=== PATIENT | female | born 1975 | race Caucasian/White ===

== ENCOUNTER 2018-02-17 17:41 | Observation (INO) ==
--- NOTE | 2018-02-17 19:16 | Internal Med History&Physical ---
Date of Encounter: 02/17/18 Time of Encounter: 19:13 Assessment and Plan (1) CAD (coronary artery disease) Current visit: Yes Status: Acute Patient says had a PTCA with stent placement to RCA last year at [facility] Qualifiers: Coronary Disease-Associated Artery/Lesion type: [place] artery [place] vs. transplanted heart: [place] heart Associated angina: with stable angina Qualified Code(s): I25.118 - Atherosclerotic heart disease of [place] coronary artery with other forms of angina pectoris (2) Chronic back pain Current visit: Yes Status: Chronic Chronic resume home medication Qualifiers: Back pain location: thoracic back pain Back pain laterality: unspecified Qualified Code(s): M54.6 - Pain in thoracic spine; G89.29 - Other chronic pain; G89.29 - Other chronic pain (3) Smoking Current visit: Yes Status: Chronic (4) Chest pain Current visit: No Status: Acute Patient with prior angioplasty now with recurrent chest pain about 2-3 weeks but more persistent today troponin so far is negative with trend troponin obtain 2-D echo and nuclear stress test tomorrow Qualifiers: Chest pain type: precordial pain Qualified Code(s): R07.2 - Precordial pain Internal Medicine - H&P: HPI Chief complaint: chest pain Admitted From: Intrahospital Transfer Plans for Post Hospital Care: Home History of present illness: Ms. Soto is a 43 year old female Patient with history of CAD had a stent placement of the RCA about a year ago .also history of chronic upper back on the neck pain, high cholesterol and smoking history patient presented to [place] emergency room with chest pain recurrent for about 2-3 weeks but has been persistent today since 12 noon patient says is similar to her chest pain which she pci last year the chest pain has no relationship to any activity no radiation no shortness of breath and sweats. Her troponin outside hospital was negative she was transferred here for further Evaluation. Past Med Surg Social Fam HX - Past Medical History Medical history: coronary artery disease, other Psychiatric history: no psych history - Past Surgical History Surgical History: angioplasty/stent - Social History Smoking Status: Current every day smoker Smokeless Tobacco Status: No Alcohol use: none Drug use: none - Family History Mother Living Status: Hx Family Cardiac Disorders: Yes Hx Family Cancer: Yes (lung) Internal Medicine - H&P: Meds Aspirin [Lo-Dose Aspirin EC] 81 mg PO DAILY 02/17/18 [History] Atorvastatin [Lipitor] 40 mg PO HS 02/17/18 [History] Celecoxib [Celebrex] 200 mg PO BID 02/17/18 [History] Ranolazine [Ranexa] 500 mg PO BID 02/17/18 [History] amLODIPine [Norvasc] 2.5 mg PO DAILY 02/17/18 [History] 3 Allergy/AdvReac Type Severity Reaction Status Date / Time No Known Allergies Allergy Verified 07/22/17 11:15 All Systems PM: A 10-system review of systems was performed and is negative for pertinent findings except as documented above in the HPI. - Constitutional Constitutional: no chills, no fever(s), no night sweats - EENT Eyes: no change in vision, no discharge, no pain, no photophobia Ears: no ear discharge, no ear pain, no tinnitus Nose, mouth and throat: no dysphagia, no nasal discharge, no neck pain, no sore throat - Cardiovascular Cardiovascular ROS IM: chest pain - Respiratory Respiratory: no cough, no dyspnea, no wheezing, no excessive phlegm production - Gastrointestinal Gastrointestinal: no abdominal pain, no diarrhea, no hematemesis, no hematochezia, no melena, no nausea, no vomiting - Genitourinary Genitourinary: no change in urinary stream, no dysuria, no flank pain, no hematuria - Musculoskeletal Musculoskeletal ROS IM: no numbness, no tingling - Integumentary Integumentary IM: no rash, no unusual bruising - Constitutional Vitals: Temp Pulse Resp BP Pulse Ox 98.3 F 66 16 137/77 99 02/17/18 19:05 02/17/18 19:05 02/17/18 19:05 02/17/18 19:05 02/17/18 19:05 - Head Head exam: Present: atraumatic, normocephalic - Eye Eye exam: Present: PERRL, conjuntiva pink, sclera anicteric Pupils: Present: PERRL - Neck Neck exam general surgery: Present: supple, trachea midline. Absent: lymphadenopathy - Respiratory Respiratory exam: Present: CTAB. Absent: accessory muscle use, rales, rhonchi, wheezes - Cardiovascular Cardiovascular exam: Present: RRR, +S1, +S2. Absent: diastolic murmur, gallop, rubs, systolic murmur - GI/Abdominal GI/Abdominal exam: Present: normal bowel sounds, soft, no peritoneal signs. Absent: distended, tenderness - Extremities Exam Extremities exam: Present: warm, radial pulses palpable and symmetrical. Absent : calf tenderness, cyanotic, pedal edema - Neurological Exam Neurological exam: Present: CN II-XII intact, oriented X3, no focal deficits. Absent: pronater drift, facial droop, speech deficit - Skin Skin exam: Present: dry, intact
[2018-02-17] MEDS ORDERED: Naloxone 0.4 MG/ML INJ IVP PRN (19:19)
[2018-02-17] MEDS ORDERED: Acetaminophen 325 MG TABLET PO PRN (19:19)
[2018-02-17] MEDS ORDERED: 0.9 % Sodium Chloride 1,000 ML IVC SCH (19:30)
[2018-02-17] MEDS: Celecoxib 200 MG CAPSULE PO SCH (20:35)
[2018-02-17] MEDS: Ranolazine 500 MG TAB.ER.12H PO SCH (20:35)
[2018-02-17] MEDS: traMADol 50 MG TABLET PO PRN (20:35)
[2018-02-18 02:09] LABS: Alanine Aminotransferase 10 Units/L (7-52); Albumin 3.8 g/dL (3.5-5.7); Albumin/Globulin Ratio 1.6 (1.1-2.2); Alkaline Phosphatase 52 Units/L (34-104); Aspartate Amino Transferase 14 Units/L (13-39); BUN/Creatinine Ratio 26 (6-26); Bilirubin,Total 0.2 mg/dL (0.3-1.0); Blood Urea Nitrogen 19 mg/dL (6-20); Calcium 8.8 mg/dL (8.6-10.3); Carbon Dioxide 24 mEq/L (23-29); Chloride 107 mEq/L (98-107); Chol/HDL Ratio 3.6 (0-4.9); Cholesterol 172 mg/dL (< 200); Globulin 2.4 g/dL (2.4-3.5); Glucose 105 mg/dL (70-105); HDL Cholesterol 48 mg/dL (40-59); LDL Cholesterol,Calculated 96 mg/dL (0-99); Osmolality,Calculated 287 (280-300); Potassium 3.7 mEq/L (3.5-5.1); Sodium 137 mEq/L (136-145); Total Protein 6.2 g/dL (6.4-8.9); Triglycerides 140 mg/dL (< 150); eGFR For African Americans > 60 (> 60); eGFR For Non-African Americans > 60 (> 60)
[2018-02-18] MEDS: traMADol 50 MG TABLET PO PRN (03:48)
[2018-02-18] MEDS ORDERED: Regadenoson 0.4 MG/5 ML SYRINGE IVP ONE (06:14)
[2018-02-18] MEDS ORDERED: amLODIPine 5 MG TABLET PO SCH (09:00)
[2018-02-18] MEDS ORDERED: Aspirin Enteric Coated 81 MG Tablet PO SCH (09:00)
[2018-02-18] MEDS: Celecoxib 200 MG CAPSULE PO SCH (10:55)
[2018-02-18] MEDS: Ranolazine 500 MG TAB.ER.12H PO SCH (10:56)
[2018-02-18 11:20] VITALS: BP 129/85
--- NOTE | 2018-02-18 12:42 | Discharge Summary ---
- NOTES TO OUTPATIENT PROVIDER Notes to Outpatient Provider: pcp within week Orders not resulted at time of discharge: Pending orders 02/17/18 19:22 NM maia perf SPECT multi [NM] Routine Date of Encounter: 02/18/18 Time of Encounter: 12:40 - Discharge Diagnosis (1) CAD (coronary artery disease) Priority: Primary Status: Acute Qualifiers: Coronary Disease-Associated Artery/Lesion type: [place] artery [place] vs. transplanted heart: [place] heart Associated angina: with stable angina Qualified Code(s): I25.118 - Atherosclerotic heart disease of [place] coronary artery with other forms of angina pectoris (2) Chronic back pain Priority: Primary Status: Chronic Qualifiers: Back pain location: thoracic back pain Back pain laterality: unspecified Qualified Code(s): M54.6 - Pain in thoracic spine; G89.29 - Other chronic pain; G89.29 - Other chronic pain (3) Smoking Priority: Primary Status: Chronic Hospital course: Ms. Soto is a 43 year old female with a history of CAD and stent placement of the RCA approximately a year ago. Has a history of chronic upper back and neck pain with high cholesterol and smoking. She presented to the [place] emergency room with chest pain recurrent for 2-3 weeks but had persistent data admission for many hours. She states it was similar to her chest pain which she had last year. The chest pain had no relationship to activity with no radiation no shortness of breath no sweats. Her troponins were negative. She had a stress test. Port was reviewed and discussed with the patient the pharmacologic stress ECG was negative for ischemia at the level of heart rate achieved. Chest discomfort reported prior to and during the study with no change in intensity. Gated EF is equal to 64%. Perfusion imaging was negative for ischemia or infarct. Echocardiogram was obtained with LVEF 60-65%. Normal LV chamber size wall thickness and function. Normal left ventricular diastolic function. Normal right ventricular structure and function. No evidence of pulmonary hypertension and no significant valvular dysfunction. Last with the patient she will follow-up with her long term care phlebotomist in 2-3 weeks. Has no questions. Discharge discussed with: patient, family, nurse, community health consultant Time spent discussing smoking cessation with patient: 3 to 10 minutes - Time Spent with Patient Total time spent providing and/or coordinating discharge services: Less than 30 minutes - Discharge Medications Home Medications: Aspirin [Lo-Dose Aspirin EC] 81 mg PO DAILY 02/17/18 [History] Atorvastatin [Lipitor] 40 mg PO HS 02/17/18 [History] Ranolazine [Ranexa] 500 mg PO BID 02/17/18 [History] amLODIPine [Norvasc] 2.5 mg PO DAILY 02/17/18 [History] Metoprolol Succinate [Toprol Xl] 25 mg PO DAILY 02/18/18 [History] Prasugrel HCl 10 mg PO DAILY 02/18/18 [History] Ranitidine HCl [Zantac] 300 mg PO DAILY 02/18/18 [History] Allergies/Adverse Reactions: 3 Allergy/AdvReac Type Severity Reaction Status Date / Time No Known Allergies Allergy Verified 07/22/17 11:15 Date of admission: 02/17/18 18:41 Primary care physician: Sakina Rosas CNP Discharging clinician: Rashida Howard Anticipated date of discharge: 02/18/18 - Constitutional Vitals: Temp Pulse Resp BP Pulse Ox 97.5 F L 60 18 129/85 96 02/18/18 11:17 02/18/18 11:17 02/18/18 11:17 02/18/18 11:17 02/18/18 11:17 - Patient Status Disposition: Home, Self-Care Condition: Good Functional capacity at discharge: independent ambulation Overall status at discharge: patient is progressing back to baseline - Discharge Instructions Instructions: Chronic Hypertension (DC) Follow Up With: Sakina Rosas CNP [Primary Care Provider] - 02/25/18 2:15 pm (Appointment made with Kimberley Paniagua) Forms: Inpatient Work/School Release - Diet and Activity Activity: resume usual activities as tolerated Diet: advance to your usual diet, low fat, low cholesterol
== END 2018-02-18 13:35 | disposition home or self-care (01) ==
LOC: 3BNU
PROVIDERS: ADMIT Internal Medicine Cardiovascular Disease; ATTEND Registered Nurse